=== PATIENT | female | born 1980 | race Caucasian/White ===

== ENCOUNTER 2020-12-19 13:57 | Inpatient (IN) | payer OTHER ==
[~2020-12-19] VITALS: Ht 165.1 cm; Wt 73.9 kg
--- NOTE | ~2020-12-19 | OP ---
[facility] [address] [place] [address] OPERATIVE REPORT Name: AGUILA MELÉNDEZ Room: [address] IN .R.#: [id number] Admission: 12/19/20 Attend Phys: Antwan Hackett Discharge: Date of : 76 Report #: [id number] THIS REPORT FOR: cc: Rowan Vicente,Rowan Jiang,Demetrio Gamboa MD ~ DATE OF SURGERY: 12/21/2020 PREOPERATIVE DIAGNOSIS: Gallstone pancreatitis. POSTOPERATIVE DIAGNOSIS: Gallstone pancreatitis. OPERATION: Laparoscopic cholecystectomy with intraoperative cholangiogram. SURGEON: Demetrio Cash MD ANESTHESIA: General. ESTIMATED BLOOD LOSS: 50 mL. SPECIMEN: Gallbladder. DESCRIPTION OF PROCEDURE: After informed consent was obtained, the patient was brought to the operating room and placed supine. SCDs were placed and working, preoperative antibiotics were administered, general anesthesia was induced. The abdomen was prepped and draped in the usual sterile fashion. A 10 mm incision was made below the umbilicus. Fascia was incised and a trocar was placed. Pneumoperitoneum was established. Three right upper quadrant 5 mm ports were placed. Gallbladder was grasped at the fundus and retracted cephalad. Infundibulum was grasped and retracted laterally. I dissected out the cystic duct and the cystic artery. I dissected out the cystic plate. The cystic duct was clipped. A ductotomy was made. Cholangiogram catheter was inserted. Cholangiogram was performed. This demonstrated filling of the cystic duct, common bile duct, common hepatic duct, bifurcation of the hepatics, flow into the duodenum without any filling defects. The catheter was then removed. The cystic duct was clipped and ligated leaving a PDS Endoloop on the remaining duct. The cystic artery was clipped and ligated. The gallbladder was then taken off the liver bed with electrocautery. The gallbladder fossa was very friable. There was some oozing, which was controlled with cautery. I then packed the area with FloSeal and Surgicel. There was excellent hemostasis after this without any evidence of bleeding. The gallbladder was then placed into an Endopouch and removed. The fascia was closed with a teuxig-lx-neugd 0 Vicryl. Skin was closed with 4-0 Monocryl. Incisions were [place] [address] OPERATIVE REPORT Name: AGUILA MELÉNDEZ Room: [address]#: [id number] Admission: 12/19/20 Attend Phys: Antwan Hackett Discharge: Date of : 76 Report #: [id number] COMPLICATIONS: None. DISPOSITION: The patient was taken to recovery in satisfactory condition. By: [id number] Cash MD /nt
[~2020-12-19 13:57] MED LIST: FLAGYL500 MG PO; ZYRTEC10 M2 PO
[2020-12-19 14:29] VITALS: BP 190/135
[2020-12-19] MEDS ORDERED: LISINOPRIL20 MG PO (14:32)
[2020-12-19 14:53] LABS: HEMATOCRIT 44.5 % (37.0-47.0); HEMOGLOBIN 15.1 gm/dL (12.0-15.0); MCH 30.8 pg (26.0-34.0); MCHC 33.8 g/dL (28.0-37.0); MCV 90.9 fL (80.0-100.0); MPV 8.4 fl. (7.2-11.1); NUCLEATED RBCS 0 /100WBC; PLATELET COUNT* 325 thou/uL (150-400); RDW-CV 13.1 % (10.5-14.5); WBC 15.3 thou/uL (4.0-11.0)
[2020-12-19 15:00] LABS: CALCIUM 9.2 mg/dL (8.5-10.1); CREATININE 0.8 mg/dL (0.6-1.3); POTASSIUM 3.8 mmol/L (3.5-5.1)
[2020-12-19 15:05] LABS: ALBUMIN 4.2 g/dL (3.4-5.0); TOTAL BILIRUBIN 1.1 mg/dL (<0.1-1.0); TOTAL PROTEIN 8.4 g/dL (6.4-8.2)
[2020-12-19 15:30] LABS: ABSOLUTE LYMPHOCYTES 1.8 thou/uL (0.8-5.3); ABSOLUTE MONOCYTES 0.2 thou/uL (0.0-1.2); ABSOLUTE NEUTROPHILS 13.3 thou/uL (1.6-8.1); PLATELET ESTIMATE ADEQUATE
[2020-12-19 17:18] LABS: URINE BILIRUBIN NEGATIVE (Negative); URINE BLOOD 1+ (Negative); URINE CLARITY CLEAR; URINE COLOR YELLOW; URINE GLUCOSE-RANDOM NEGATIVE (Negative); URINE KETONES 1+ (Negative); URINE LEUKOCYTES NEGATIVE (Negative); URINE NITRITE NEGATIVE (Negative); URINE PROTEIN TRACE (Negative); URINE SPECIFIC GRAVITY <= 1.005 (1.005-1.030); URINE UROBILINOGEN 0.2 E.U./dl (0.2-1.0)
[2020-12-19 17:28] LABS: BACTERIA 1-9 Few /HPF (None Seen); CASTS None Seen /LPF (None Seen); CRYSTALS None Seen /LPF (None Seen); SQUAMOUS 4-10 Moderate /LPF (0-3); URINE RBC 3-10 Few /HPF (0-2); URINE WBC 0-5 Rare /HPF (0-5)
--- NOTE | 2020-12-19 21:28 | NUR ---
MESSAGE SENT TO BERTRAND XIE ABOUT IF PT CAN TAKE HER HOME HORMONE MEDICATION
[2020-12-19 21:40] VITALS: BP 154/92
--- NOTE | 2020-12-19 23:38 | NUR ---
SPOKE WITH DR. ARCHIBALD REGARDING PATIENT WANTING TO TAKE HOME HORMONE MEDICATION . PATIENT WAS TOLD SHE IS OKAY TO TAKE HORMONE MEDICATION.
[2020-12-20] VITALS (7 sets, daily range): BP systolic 152–182; BP diastolic 76–102
--- NOTE | 2020-12-20 05:08 | NUR ---
RE-ASSESSED PATIENT AT THIS TIME. PATIENT STILL CONTINUE TO COMPLAIN OF PAIN. STATES PAIN MEDICATION ONLY WORKS FOR A SHORT PERIOD OF TIME.
[2020-12-20 09:57] LABS: ABSOLUTE BASOPHILS 0.1 thou/uL (0.0-0.2); ABSOLUTE LYMPHOCYTES 2.2 thou/uL (0.8-5.3); ABSOLUTE MONOCYTES 0.8 thou/uL (0.0-1.2); ABSOLUTE NEUTROPHILS 10.4 thou/uL (1.6-8.1); BASOPHILS 0.5 %; EOSINOPHILS 0.1 %; HEMATOCRIT 36.1 % (37.0-47.0); LYMPHOCYTES 16.1 %; MCH 30.8 pg (26.0-34.0); MCHC 34.2 g/dL (28.0-37.0); MCV 90.2 fL (80.0-100.0); MONOCYTES 5.7 %; NUCLEATED RBCS 0 /100WBC; PLATELET COUNT* 251 thou/uL (150-400); POLYS 77.6 %; WBC 13.5 thou/uL (4.0-11.0)
[2020-12-20 10:00] LABS: HEMOGLOBIN 12.3 gm/dL (12.0-15.0)
[2020-12-20 10:11] LABS: ALBUMIN 3.3 g/dL (3.4-5.0); CALCIUM 7.3 mg/dL (8.5-10.1); CREATININE 0.6 mg/dL (0.6-1.3); POTASSIUM 3.2 mmol/L (3.5-5.1); TOTAL BILIRUBIN 0.6 mg/dL (<0.1-1.0); TOTAL PROTEIN 6.7 g/dL (6.4-8.2)
--- NOTE | 2020-12-20 16:21 | NUR ---
cm completed an assessment with the pt who indicated she lives in home with family. pt is active and independent with cares. pt drives a vehicle. pt has no dmes. and denies hx with hh or snf. cm to cont to follow to assist w/ dc as needed.
--- NOTE | 2020-12-20 19:32 | NUR ---
PATIENT ARRIVED FROM ER THIS EVENING. HISTORY, ASSESSMENT AND VITALS COMPLETED AND DOCUMENTED. PATIENT SETTLED TO ROOM. PATIENT HAS COMPLAINTS OF PAIN TO RIGHT UPPER QUAD, MORPHINE GIVEN. NAUSEA WITH VOMITING, ZOFRAN GIVEN. PATIENT IS NPO. IVF'S INFUSING ORDERED. PATIENT IS UP AD ANNA TO BATHROOM. PATIENT DENIES ANY NEEDS AT THIS TIME. CALL LIGHT WITHIN REACH.
[2020-12-21 02:06] LABS: HEPATITIS B SURFACE AG Negative (Negative)
[2020-12-21 06:58] LABS: HEMOGLOBIN 11.4 gm/dL (12.0-15.0); MCH 31.4 pg (26.0-34.0); MCHC 34.6 g/dL (28.0-37.0); MCV 90.8 fL (80.0-100.0); MPV 8.6 fl. (7.2-11.1); RBC 3.63 mil/uL (4.20-5.00); WBC 11.7 thou/uL (4.0-11.0)
[2020-12-21 07:06] VITALS: BP 167/80
[2020-12-21 07:16] LABS: CALCIUM 7.1 mg/dL (8.5-10.1); CREATININE 0.6 mg/dL (0.6-1.3); MAGNESIUM 1.8 mg/dL (1.8-2.4); POTASSIUM 3.1 mmol/L (3.5-5.1); TOTAL BILIRUBIN 0.6 mg/dL (<0.1-1.0); TOTAL PROTEIN 6.4 g/dL (6.4-8.2)
--- NOTE | 2020-12-21 07:41 | NUR ---
PATIENT SLEPT PART OF THE NIGHT. IV FLUIDS CONTINUE AT 150 ML/HR. PATIENT HAS BEEN NPO SINCE MIDNIGHT FOR LAP SOPHIA TODAY.PATIENT WAS GIVEN ZOFRAN, MORPHINE AND BENADRYL TWICE THIS SHIFT. WILL CONTINUE TO MONITOR.
--- NOTE | 2020-12-21 09:45 | NUR ---
PT TAKEN TO PACU AT 0740
--- NOTE | 2020-12-21 15:16 | NUR ---
PT RETURNED TO ROOM S/P LAP SOPHIA. PT'S ABDOMEN IS SOFT WITH 5 PUNCTURE SITES. PT WAS GROGGY INITIALLY BUT IS NOW AWAKE AND ALERT. PT WILL CONTINUE ON IV ABX. HYDROCODONE 2 TABS GIVEN AT 1500. CALL LIGHT AND FREQUENTLY USED ITEMS WITHIN REACH. FALL PRECAUTIONS AND HOURLY ROUNDING CONTINUE.
[2020-12-21 15:45] VITALS: BP 159/84
--- NOTE | 2020-12-21 16:43 | NUR ---
Case Management Followup CM and providers met to discuss length of stay and discharge. Providers indicated pt is not yet medically clear for discharge, but may be discharged home tomorrow. No CM needs noted at this time. CM to continue to follow should discharge needs change.
--- NOTE | 2020-12-21 17:27 | EKG ---
[place] [address] ELECTROCARDIOGRAM REPORT Name: AGUILA MELÉNDEZ Room: [address] ADM IN M.R.#: [id number] Admission: 12/19/20 Attend Phys: Clay Cooley Discharge: Date of : 76 Date of Service: 12/21/20806 Report #: [id number] THIS REPORT FOR: //name// [facility] Test Date: 2020-12-21 Test Time: 08:07:04 Pat Name: AGUILA MELÉNDEZ Department: Room: [address] Gender: F Facilities Director: : 1980 Requested By: Susannah Odonnell Order Number: [id number] Maryjane MD: Aleksander Benitez Measurements Intervals [place] Rate: 75 P: 25 MD: 105 QRS: 6 QRSD: 101 T: 45 QT: 422 QTc: 472 Interpretive Statements Sinus rhythm Short MD interval Compared to ECG 08/19/2007 21:13:00 Sinus arrhythmia no longer present Electronically Signed On 12-21-2020 17:26:53 CDT by Aleksander Benitez [email or web address] <ELECTRONICALLY SIGNED> By: Aleksander Benitez MD, FACC 12/21/20 1726 6 6 Aleksander Benitez MD, [facility] /EPI
[2020-12-21 20:30] VITALS: BP 159/91
--- NOTE | 2020-12-22 04:50 | NUR ---
PT A&O X 4, VSS ON RA. MEDS GIVEN ORDERED. NORCO GIVEN X 1 FOR PAIN. LAP SITES C/D/I. NO C/O NAUSEA OR VOMITING. UP AD ANNA. CALL LIGHT WITHIN REACH. WILL CONTINUE TO MONITOR.
[2020-12-22 05:05] LABS: HEMATOCRIT 31.5 % (37.0-47.0); HEMOGLOBIN 10.7 gm/dL (12.0-15.0); MCHC 34.1 g/dL (28.0-37.0); MCV 90.9 fL (80.0-100.0); MPV 9.2 fl. (7.2-11.1); RBC 3.46 mil/uL (4.20-5.00); RDW-CV 12.8 % (10.5-14.5); WBC 11.7 thou/uL (4.0-11.0)
[2020-12-22 05:17] LABS: ALBUMIN 2.9 g/dL (3.4-5.0); CALCIUM 7.5 mg/dL (8.5-10.1); CREATININE 0.6 mg/dL (0.6-1.3); MAGNESIUM 1.9 mg/dL (1.8-2.4); POTASSIUM 3.3 mmol/L (3.5-5.1); TOTAL BILIRUBIN 0.4 mg/dL (<0.1-1.0); TOTAL PROTEIN 6.2 g/dL (6.4-8.2)
[2020-12-22 05:29] VITALS: BP 189/97
[2020-12-22 08:00] VITALS: BP 160/88
[2020-12-22] MEDS ORDERED: HYDROCODON-ACE1 EAC7 PO (09:14)
[2020-12-22] MEDS ORDERED: ZOFRAN 4 MG ORAL4 MG PO (09:14)
[2020-12-22 14:22] VITALS: BP 168/95
[2020-12-22 14:41] VITALS: BP 168/95
[2020-12-22 16:26] VITALS: BP 175/88
--- NOTE | 2020-12-22 17:12 | NUR ---
PT DISCHARGED HOME WITH ALL BELONGINGS ACCOMPANIED BY . VSS AFEBRILE. PT STILL HAVING SOME GAS ISSUSES BUT IS GETTING BETTER. PT KNOWS TO EAT LOW FAT DIET WITH HIGH FIBER. PT ALSO UNDERSTANDS THAT WALKING IS A LOT BETTER THAN JUST SITTING AROUND TO HELP MOVWE THE AIR/GAS OUT. SALINE LOCK REMOVED HUB INTACT. PT DISMISSED HOME,
--- NOTE | 2020-12-25 13:09 | PATH ---
[address] [address] PATHOLOGY RPT PROCEDURE Name: AGUILA MELÉNDEZ Room: [address] IN ..#: [id number] Admission: 12/19/20 Date of : 76 Discharge: 12/22/20 Report #: [id number] Path Case #: [id number] [facility] Accession Number: [id number] . 01 Material submitted: . gallbladder - GALLBLADDER AND CONTENTS . 01 Clinical history: . LAPAROSCOPIC CHOLECYSTECTOMY WITH GRAMS ACUTE CHOLECYSTITIS . 02 Diagnosis: Gallbladder and contents: - Chronic cholecystitis, cholesterolosis, and cholelithiasis. (ARIA:alex; 12/24/2020) MBR 12/24/2020 [facility]3 Local . 02 Electronically signed: . Carlito Ruth MD, Pathologist NPI- [id number] . 01 Gross description: . Fixative: Formalin Labeled: Gallbladder and contents Specimen received: Intact gallbladder Dimensions: 7.2 x 2.7 x 2.7 cm Serosa: Light brown-duenas Lymph node: None identified Mucosa: Velvety and bile-stained Average wall thickness: 0.1 cm Calculi: Present, light yellow-green and granular Abnormalities: None identified . 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 ([facility]; 12/21/2020) [facility] 12/21/2020 1538 Local . 02 Pathologist provided ICD-10: K80.10, K82.4 . 02 CPT . 591697 Specimen Comment: A courtesy copy of this report has been sent to [phone], [phone] Specimen Comment: [phone] Specimen Comment: Report sent to Dr. LAY / DR ROSENBERG Specimen Comment: A duplicate report has been generated [place] [address] PATHOLOGY RPT PROCEDURE Name: RACHIDTacoAGUILA Room: [address] IN [facility]#: [id number] Admission: 12/19/20 Date of : 76 Discharge: 12/22/20 Report #: [id number] Path Case #: [id number] Performed at: 01 [facility] [place] [address], [place], [place] [id number] MD Rosendo Le MD Phone: [phone] Performed at: 02 [facility] [address], [place], [place] [id number] MD Carlito Ruth MD Phone: [phone]
== END 2020-12-22 17:07 | disposition home or self-care (01) | DRG 417 ==
LOC: M.ERS 13:57 → M.TBA-ER 17:45 → M.3W 12-20 16:23
PROVIDERS: Emergency Medicine; Internal Medicine; ADMIT Internal Medicine; ATTEND Internal Medicine
PROC: BF121ZZ Fluoroscopy of Gallbladder using Low Osmolar Contrast (ICD-10-PCS; principal; 2020-12-21)
PROC: 0FT44ZZ Resection of Gallbladder, Percutaneous Endoscopic Approach (ICD-10-PCS; principal; 2020-12-21)
DX: K80.20 Calculus of gallbladder without cholecystitis without obstruction (principal); K85.10 Biliary acute pancreatitis without necrosis or infection; R65.10 Systemic inflammatory response syndrome (SIRS) of non-infectious origin without acute organ dysfunction; R74.01 Elevation of levels of liver transaminase levels; I10 Essential (primary) hypertension; Z20.822 Contact with and (suspected) exposure to COVID-19; Z88.6 Allergy status to analgesic agent; Z88.1 Allergy status to other antibiotic agents; Z88.0 Allergy status to penicillin; Z88.2 Allergy status to sulfonamides; Z88.8 Allergy status to other drugs, medicaments and biological substances; Z79.899 Other long term (current) drug therapy